=== PATIENT | male | born 2000 | race Caucasian/White ===

== ENCOUNTER 2022-05-26 21:09 | Emergency (ER) | payer OTHER ==
[~2022-05-26] VITALS: Ht 167.6 cm; Wt 64.5 kg
[2022-05-27] VITALS: BP 119/62
== END 2022-05-27 00:12 | disposition home or self-care (01) ==
LOC: ER 21:09
DX: M25.512 Pain in left shoulder (principal)
CPT/HCPCS: 73030; 99283